=== PATIENT | female | born 1990 | race Caucasian/White ===

== ENCOUNTER → 2017-04-26 11:45 | Observation (INO) ==
[2017-04-26 10:36] LABS: Bilirubin,Urine Negative (Negative); Blood,Urine Negative (Negative); Clarity,Urine Cloudy (Clear); Color,Urine Yellow (Yellow); Glucose,Urine (UA) Normal (Normal); Ketones,Urine Negative (Negative); Leukocyte Esterase,Urine Negative (Negative); Nitrite,Urine Negative (Negative); Protein,Urine Negative (Neg-Trace); Specific Gravity,Urine 1.021 (1.010-1.025); Urobilinogen,Urine Normal (Normal)
[2017-04-26 10:37] LABS: Bacteria,Urine Moderate per hpf (None-Few); Hyaline Casts,Urine None Seen per lpf (None-Few); Squamous Epithelial Cell,Urine Many per lpf (None-Few)
[2017-04-26 10:54] VITALS: BP 124/59
[2017-04-26 10:56] LABS: Renal Epithelial Cells,Urine Few per hpf (None-Few)
[2017-04-26 11:18] LABS: Amphetamine Screen,Urine Negative ng/mL (Cutoff=1000); Barbiturate Screen,Urine Negative ng/mL (Cutoff=200); Benzodiazepines Screen,Urine Negative ng/mL (Cutoff=200); Cannabinoid Screen,Urine Negative ng/mL (Cutoff = 50); Cocaine Screen,Urine Negative ng/mL (Cutoff= 300); Opiate Screen,Urine Negative ng/mL (Cutoff=300); Phencyclidine Screen,Urine Negative ng/mL (Cutoff=25)
--- NOTE | 2017-04-26 11:36 | OB/GYN Progress Note ---
Date of Encounter: 04/26/17 Time of Encounter: 11:34 - Assessment and Plan (1) 34 weeks gestation of Current Visit: Yes Status: Acute NST reactive (2) Vaginal discharge during in third trimester Current Visit: Yes Status: Acute Vaginosis panel sent. Will call pt with results. (3) Back pain affecting in third trimester Current Visit: Yes Status: Acute Consistent with muscle pain. Comfort measures discussed. Will write work restriction for lifting. Discharge home with precautions. Subjective - Subjective Interval history: 26 year-old presenting at 34 weeks gestation with c/o white discharge with "sweet" odor and left sided back pain. She reports the pain started last night and is achy and pressure type pain. She states she has been required to lift 5 gallon pain buckets at work lately. No other complaints. No LOF or VB. Good FM. Antepartum ROS: movement normal, no loss of fluid, no vaginal bleeding, no contractions Objective - Vital Signs Vital Signs: Vital Signs Temp Pulse Resp BP 04/26/17 10:05 97.8 F 93 18 124/59 Intake and Output 04/25/17 04/26/17 04/26/17 23:59 07:59 15:59 Other: Weight 122.5 kg Patient Weight 04/26/17 23:59 Weight 122.5 kg - Exam FHR: category 1 FHR comments: NST reactive Auscultation: bilateral: normal Abdomen: Present: soft. Absent: tenderness Uterus: Present: normal. Absent: tenderness Cervical dilation: visually closed Comments: SSE with thin white discharge in vault, vaginosis panel sent. Will follow up. - Labs Labs: Abnormal lab results Urine Clarity Cloudy (Clear) A 04/26/17 10:00 Urine Microscopic WBC 3-5 per hpf (0-3) H 04/26/17 10:00 Ur Squamous Epith Cells Many per lpf (None-Few) H 04/26/17 10:00 Urine Bacteria Moderate per hpf (None-Few) H 04/26/17 10:00
[2017-04-26 12:34] LABS: Candida DNA Not Detected (Not Detect); Gardnerella DNA Not Detected (Not Detect); Trichomonas DNA Not Detected (Not Detect)
== END | disposition home or self-care (01) ==
LOC: 1NENULAB
PROVIDERS: ADMIT Student in an Organized Health Care Education/Training Program; ATTEND Student in an Organized Health Care Education/Training Program

== ENCOUNTER 2017-05-31 09:46 | Inpatient (IN) ==
[2017-05-31] MEDS ORDERED: Ondansetron 4 MG/2 ML VIAL IVP PRN (10:56)
[2017-05-31] MEDS ORDERED: *HR* Nalbuphine 20 MG/ML AMPUL IVP PRN (10:56)
[2017-05-31] MEDS ORDERED: Naloxone 0.4 MG/ML INJ IVP PRN ×2 (10:56→17:36)
[2017-05-31] MEDS ORDERED: Famotidine 20 MG/2 ML VIAL IVP PRN (10:56)
[2017-05-31] MEDS ORDERED: Ringers Solution, Lactated 1,000 ML IVC SCH (11:00)
--- NOTE | 2017-05-31 11:13 | Anesthesia Evaluation PreOp ---
Date of Encounter: 05/31/17 Time of Encounter: 11:08 - Past History Planned Operation: DESHAUN Cardiac History: Denies any Significant Hx Pulmonary History: Asthma SUSTAINABLE PRODUCTS MARKETING MANAGER History: Denies Any Significant HX Other Medical History: Denies Any Significant HX Anesthesia History: No Prior Anesthetic Complications, Past Anesthesia (wisdom teeth, D&C) : Yes Alcohol Use: none Drug use: none Medications and Allergies Albuterol Sulfate [Albuterol Inhaler] 2 puff IH Q4H PRN 08/03/16 [History] Folic Acid 0.8 mg PO DAILY 08/03/16 [History] 3 Allergy/AdvReac Type Severity Reaction Status Date / Time Cephalosporins Allergy Hives Verified 12/23/16 11:16 indomethacin Allergy Hives Verified 12/23/16 11:16 Penicillins Allergy Hives Verified 12/23/16 11:16 - Meds/Allergy Pre-op Review Medications Reviewed: Yes Allergies Reviewed: Yes Beta Blockers on Current Med List: No Anesthesia Exam T 97.8 BP 135/84 P 92 R 16 Height: 5'10" Weight: 127kg NPO (# of Hours): 1 Pain Scale: 0 Pain Scale Used: Numeric (1 - 10) - HEENT Pupil (Motor): Pupils equal Mallampati: II Teeth: Normal Oral Opening: Greater than 3 - SUSTAINABLE PRODUCTS MARKETING MANAGER LOC: Oriented SUSTAINABLE PRODUCTS MARKETING MANAGER Motor: Normal RUE, Normal LUE, Normal RLE, Normal LLE, Normal Face SUSTAINABLE PRODUCTS MARKETING MANAGER Sensory: Normal: RUE, LUE, RLE, LLE, Face - Cardiac Rhythm: Regular Murmur: None JVD: No Carotid Bruit: No - Pulmonary Breath Sounds: bilateral Clear Respiratory Effort: Symmetrical Anesthesia Assess/Plan ASA Score: 2 Modified [place] Scale for Level of Consciousness: Cooperative, oriented, and tranquil Anesthetic Plan: Regional Autologous Blood: Yes Monitoring Plan: Standard Monitors Recovery Plan: Other
[2017-05-31 11:20] LABS: Basophils % 0.2 %; Eosinophils # 0.3 K/mcL (0.0-0.6); Eosinophils % 2.4 %; Hematocrit 35.1 % (35.3-44.9); Hemoglobin 11.7 g/dL (11.5-15.4); Immature Granulocytes % 0.6 % (0-4); Lymphocytes # 1.5 K/mcL (0.6-4.6); Lymphocytes % 13.9 %; Mean Corpuscular HGB Conc 33.3 g/dL (31.6-35.5); Mean Corpuscular Hemoglobin 30.3 pg (28.0-33.3); Mean Corpuscular Volume 90.9 fL (83.0-100.0); Mean Platelet Volume 10.8 fL (9.4-12.4); Monocytes # 0.7 K/mcL (0.0-1.3); Monocytes % 6.3 %; Neutrophils # 8.4 K/mcL (1.6-8.9); Platelet Count 219 K/mcL (140-400); Red Blood Count 3.86 M/mcL (3.82-4.97); Red Cell Distribution Width 13.9 % (11.5-14.5); Segmented Neutrophils % 76.6 %
[2017-05-31] MEDS ORDERED: miSOPROStol 25 MCG TABLET PO PRN ×2 (12:07→12:08)
[2017-05-31] MEDS: Vancomycin 1,000 MG in D5% in Water 250 ML IVPB SCH ×2 (12:19→23:59)
--- NOTE | 2017-05-31 12:25 | OB/GYN History & Physical ---
Date of Encounter: 05/31/17 Time of Encounter: 12:23 Assessment and Plan (1) 39 weeks gestation of Current visit: Yes Status: Acute (2) Elective induction of labor planned Current visit: Yes Status: Acute Admit to labor and delivery Cytotec 50 g by mouth Vancomycin for GBS prophylaxis Nubain and epidural as desired Anticipate History of Present Illness Chief complaint: Induction of labor HPI: Ms. Fairbanks is a 26 year old [id number] 39+0 weeks presents to labor and delivery for an elective induction of labor. Uncomplicated course. Reports good movement, denies vaginal bleeding or leaking of fluid or contractions. Labs: O+, rubella immune, GBS positive, all other serologies negative Past Med Surg Social Fam HX - Past Medical History Medical history: asthma Psychiatric history: anxiety - Past Surgical History Surgical History: other (wisdom teeth, D&C) - Social History Smoking Status: Former smoker Smokeless Tobacco Status: No Alcohol use: none Drug use: none - Family History Mother Adopted: No Living Status: Still Living Hx Family Cardiac Disorders: Yes (HYPERTENSION) Hx Family Respiratory Disorders: No Hx Family Cancer: No Hx Family GI Disorders: No Hx Family Endocrine Disorder: No Hx Family Neuromuscular Disorders: No Hx Family Neurologic Disorders: No Hx Family HEENT Disorders: No Hx Family Autoimmune Disorders: No Obstetrical History - Pregnancies : 4 Para: 1 Term: 1 : 0 Ab's: 2 Livin Medications and Allergies Albuterol Sulfate [Albuterol Inhaler] 2 puff IH Q4H PRN 08/03/16 [History] Folic Acid 0.8 mg PO DAILY 08/03/16 [History] 3 Allergy/AdvReac Type Severity Reaction Status Date / Time Cephalosporins Allergy Hives Verified 12/23/16 11:16 indomethacin Allergy Hives Verified 12/23/16 11:16 Penicillins Allergy Hives Verified 12/23/16 11:16 Exam - Constitutional Constitutional: well developed, well nourished, no acute distress, obese - Neck Neck exam: full ROM - Lungs Respiratory exam: CTAB - Cardiovascular Cardiovascular exam: RRR - Abdomen Abdomen: Present: bowel sounds normal, gravid, non tender - Extremities Deep Tendon Reflex Grade: 2+ Normal - Vagina Vagina: Present: normal moisture - Cervix Dilation: 3 Effacement: 80 Station: -2 - Uterus Uterus exam: Present: normal size, normal contour Results Result Diagrams: 05/31/17 10:27 Abnormal lab results Hct 35.1 % (35.3-44.9) L 05/31/17 10:27 All other labs normal. - VTE Reasons for not Prescribing Prophylaxis: Treatment not Indicated - Low risk for VTE
[2017-05-31] MEDS ORDERED: Aminoglycoside Consult 1 EACH MC ONE (12:29)
[2017-05-31 12:53] LABS: BUN/Creatinine Ratio 11 (6-26); Blood Urea Nitrogen 7 mg/dL (7-20); eGFR For African Americans > 60 (> 60); eGFR For Non-African Americans > 60 (> 60)
[2017-05-31] MEDS ORDERED: EPHEDrine 50 MG/ML VIAL IVP PRN (17:36)
[2017-05-31] MEDS ORDERED: Bupivacaine-MPF 0.25% 10 ML VIAL EP ONE (17:36)
[2017-05-31] MEDS ORDERED: *HR* FentaNYL (PF) 100 MCG/2 ML VIAL EP ONE (17:36)
[2017-05-31] MEDS ORDERED: Epidural Premix (fent/bupiv) 110 ML EP ONE (17:41)
[2017-05-31] MEDS ORDERED: Epidural Premix (fent/bupiv) 110 ML EP SCH (17:45)
[2017-05-31] MEDS ORDERED: Vancomycin 1,000 MG in D5% in Water 250 ML IVPB SCH (18:00)
--- NOTE | 2017-05-31 18:30 | Anesthesia Procedures ---
Date of Encounter: 05/31/17 Time of Encounter: 17:45 Procedures: Anesthesia - Epidural/Spinal Patient ID/Chart reviewed: Yes Patient examined: Yes OB Eval: Gestational age: 39 OB Eval: : 4 OB Eval: Hx Para: 1 OB Eval: Dilated at (cm): 4 OB Eval: Contractions: Non-stressed pattern Consent Obtained: Yes Supplemental Oxygen: None/Room Air Site Prep: Aseptic Technique, Sterile prep and drape, Povidone-Iodine 1% Patient position: upright Local Anesthetic: Lidocaine 1% Amount of Local Anesthetic used: 3 Touhy Needle Gauge: 18 Catheter Depth at Skin (cm): 7 Test Dose (1.5% Lido + Epi): Volume given (mls): 3 Test Dose Result: Negative Loading Dose: 0.25% Marcaine (mls): 10 Loading Dose: Fentanyl (mcg): 100 Loading Dose Administered: Thru Catheter Infusion Med: 0.125% Bupivacaine w/ 2 mcg/ml Fentanyl Infusion Rate (mls/hr): [address]: Tape Interspace Used: L4-L5 Loss of Resistance (ABILIO): Yes Blood: No Paresthesia: No Procedure: DESHAUN placed 1st pass in upright position without any immediate noted complications. VSS and FHT stable throughout. Vitals + FHT's: 1745 BP 150/89 P 85 R 16 1818 BP 137/84 P 94 R 16
[2017-05-31] MEDS ORDERED: Oxytocin 20 units/ LR 1000 mL 20 UNIT/1,000 ML BAG IVC SCH (18:45)
--- NOTE | 2017-05-31 19:12 | OB Labor Progress Note ---
Date of Encounter: 05/31/17 Time of Encounter: 19:10 Labor Progress Note - Subjective Subjective: Pt comfortable with epidural - Cervix Cervix: 5/75/-2 - Heart Tones Heart Tones: 125/moderate/+accels/-decels - [place]: 2-4 - Interventions Interventions: AROM clear fluid - Plan Plan: Start pitocin and increase per policy. Anticipate
--- NOTE | 2017-05-31 22:53 | OB Labor Progress Note ---
Date of Encounter: 05/31/17 Time of Encounter: 22:51 Labor Progress Note - Subjective Subjective: Pt comfortable with epidural - Cervix Cervix: 5/90/-2 - Heart Tones Heart Tones: 125/moderate/+accels/-decels - [place]: IUPC placed - Interventions Interventions: IUPC placed without difficulty - Plan Plan: Continue to increase pitocin per policy Use peanut ball Anticipate
[2017-06-01] MEDS ORDERED: Epidural Premix (fent/bupiv) 110 ML EP ONE (00:26)
--- NOTE | 2017-06-01 04:25 | OB/GYN Procedure Note ---
Delivery - Delivery Date: 06/01/17 Provider: Darline Jose Intrapartum events: none Delivery induction: misoprostol Delivery augmentation: rupture of membranes, pitocin Delivery monitor: external FHT, external uterine, internal uterine Anesthesia: epidural Estimated Blood Loss: 100 - Infant (s) Infant A Infant Delivery Date: 06/01/17 Infant Delivery Time: 03:39 Presentation: vertex Position: OA Route of delivery: Gender: Female Viability: Viable Pounds: 9 Ounces: 11 Weight Gram: 4.4 kg at 1 minute: 8 at 5 mins: 9 Shoulder Dystocia: encountered Shoulder Dystocia Maneuvers: Lorenzo maneuver, suprapubic pressure, Snyder Screw maneuver Shoulder dystocia time elapsed: 58sec Specimens collected: cord blood Placenta: spontaneous Cord: 3 umbilical vessels - Repair Episiotomy: none Laceration Description: Perineal - 1st Degree, Labial - Complications Delivery complications: none Delivery comments: Induction of labor with cytotec and pitocin. Progressed to complete, directed maternal bearing down efforts, to of liveborn girl. Vertex delivered OA, shoulder dystocia encountered, Dr. Melendez called. restitution to GRETCHEN, Lorenzo, suprapubic pressure and wood screw maneuver through OA to SUBHA with delivery of anterior shoulder, body easily followed. Infant placed on maternal abdomen for stimulation, cord clamped and cut by CNM, taken to warmer APGARS 8/9. Placenta delivered spontaneously and intact on inspection. Fundus massaged to firm. Pitocin started per policy. First degree perineal lacerations and labial lacerations. Left labia repaired with 4-0. Wolf RAYMOND assisted with delivery of head, Dr. Melendez arrived as was taken to warmer. EBL 100 - Disposition Mom disposition: stable in LDR disposition: stable in LDR
[2017-06-01] MEDS ORDERED: *HR* HYDROcodone/Acet 5/325 mg TABLET PO PRN (06:55)
[2017-06-01] MEDS ORDERED: Acetaminophen 325 MG TABLET PO PRN (06:55)
[2017-06-01] MEDS ORDERED: Lanolin 28 GM TUBE TP PRN (06:55)
[2017-06-01] MEDS ORDERED: Oxytocin 20 units/ LR 1000 mL 20 UNIT/1,000 ML BAG IVC SCH (06:55)
[2017-06-01] MEDS ORDERED: Benzocaine/Menthol 56 GM AEROSOL SPRAY TP PRN (06:55)
[2017-06-01] MEDS ORDERED: Prenatal Vit/FA 1 EACH TABLET PO SCH (09:00)
[2017-06-01] MEDS: Ibuprofen 600 MG TABLET PO PRN ×2 (14:30→20:45)
--- NOTE | 2017-06-02 08:00 | Discharge Summary ---
Date of Encounter: 06/02/17 Time of Encounter: 07:45 - Discharge Diagnosis (1) Vaginal delivery Priority: Primary Status: Resolved (2) 39 weeks gestation of Priority: Primary Status: Resolved - Discharge Medications Prescriptions: Ibuprofen [Motrin] 600 mg PO Q6HR PRN #60 tablet PRN Reason: Cramping Docusate [Colace] 100 mg PO BID #30 capsule Home Medications: Albuterol Sulfate [Albuterol Inhaler] 2 puff IH Q4H PRN 08/03/16 [History] Folic Acid 0.8 mg PO DAILY 08/03/16 [History] Docusate [Colace] 100 mg PO BID #30 capsule 06/02/17 [Rx] Ibuprofen [Motrin] 600 mg PO Q6HR PRN #60 tablet 06/02/17 [Rx] Allergies/Adverse Reactions: 3 Allergy/AdvReac Type Severity Reaction Status Date / Time Cephalosporins Allergy Hives Verified 12/23/16 11:16 indomethacin Allergy Hives Verified 12/23/16 11:16 Penicillins Allergy Hives Verified 12/23/16 11:16 Data Procedures and tests throughout hospitalization: Laboratory Tests 05/31/17 05/31/17 10:23 10:27 WBC 10.9 RBC 3.86 Hgb 11.7 Hct 35.1 L MCV 90.9 MCH 30.3 MCHC 33.3 RDW 13.9 Plt Count 219 MPV 10.8 Immature Gran % 0.6 Seg Neutrophils % 76.6 Lymphocytes % 13.9 Monocytes % 6.3 Eosinophils % 2.4 Basophils % 0.2 Neutrophils # 8.4 Lymphocytes # 1.5 Monocytes # 0.7 Eosinophils # 0.3 Basophils # 0.0 BUN 7 Creatinine 0.62 Est GFR ( Amer) > 60 Est GFR (Non-Af Amer) > 60 BUN/Creatinine Ratio 11 Date of admission: 05/31/17 09:46 Primary care physician: Anita Limon CNP Consults: 06/01/17 06:55 Consult to Optical Goods Worker [CONS] Routine Comment: Vaginal delivery, consult needed Discharging clinician: Bonilla Morales Anticipated date of discharge: 06/02/17 - Patient Status Disposition: Home, Self-Care Condition: Good Functional capacity at discharge: independent ambulation Overall status at discharge: patient is progressing back to baseline - Discharge Instructions Follow Up With: Anita Limon CNP [Primary Care Provider] - - Diet and Activity Activity: resume usual activities as tolerated Diet: regular diet Hospital Course Reason for admission: induction of labor Delivery: Episiotomy: none Laceration: 1st degree Other procedures: none complications: perineal laceration Discharge diagnosis: IUP at term delivered [place] baby: female Hospital course: Ms. Fairbanks is a 26 year old female that presented 39+0 weeks presented to labor and delivery for an elective induction of labor. Uncomplicated course. Reported good movement, denied vaginal bleeding or leaking of fluid or contractions. She was started on cytotec, given vancomycin for GBS prophylaxis, and epidural. Induction of labor with cytotec and pitocin. Progressed to complete, directed maternal bearing down efforts, to of liveborn girl. Vertex delivered OA, shoulder dystocia encountered, Dr. Melendez called. restitution to GRETCHEN, Lorenzo, suprapubic pressure and wood screw maneuver through OA to SUBHA with delivery of anterior shoulder, body easily followed. Infant placed on maternal abdomen for stimulation, cord clamped and cut by CNM, infant taken to warmer APGARS 8/9. Placenta delivered spontaneously and intact on inspection. Fundus massaged to firm. Pitocin started per policy. First degree perineal lacerations and labial lacerations. Left labia repaired with 4-0. Wolf RAYMOND assisted with delivery of head, Dr. Melendez arrived as infant was taken to warmer. EBL 100. When seen today, patient says that she is in good mood and the baby is doing well. She is currently bottle feeding as a preference choice. She says her vaginal bleeding is light and has been improving. Her pain is well-controlled and is a 2/10 in the pain scale. She has been voiding and able to ambulate well. She denies fever, chills, nausea, vomiting, chest pain, shortness of breath, headaches or vision changes. She has a follow-up appointment with Dr. Marsh on 06/29/17. Time Attestation: Total time spent providing and/or coordinating discharge services: Time Spent: Less than 30 minutes Exam - Constitutional Vitals: Temp Pulse Resp BP Pulse Ox 97.8 F 97 14 134/75 96 06/01/17 19:47 06/01/17 19:47 06/01/17 19:47 06/01/17 19:47 06/01/17 19:47 General appearance IM: A&O X 3, pleasant, no acute distress, answers questions appropriately - Respiratory Respiratory exam: Present: CTAB - Cardiovascular Cardiovascular exam IM: Present: RRR, +S1, +S2 - GI/Abdominal GI/Abdominal exam IM: normal bowel sounds, soft, tenderness (Minor tenderness in lower quadrants with deep palpation.) - Uterine Tone: Firm - Extremities Exam Extremities exam IM: Present: full ROM, normal capillary refill, normal inspection, radial pulses palpable and symmetrical. Absent: calf tenderness, cyanotic, pedal edema Additional comments: Pedal pulses intact and symmetrical bilaterally. - Neurological Exam Neurological exam: reflexes normal, no focal deficits
[2017-06-02] MEDS: Ibuprofen 600 MG TABLET PO PRN (08:35)
[2017-06-02 08:38] VITALS: BP 141/84
== END 2017-06-02 12:30 | disposition home or self-care (01) | DRG 775 ==
LOC: 1NENULAB 09:46 → 1NENUOBS 06-01 06:50
PROVIDERS: ADMIT Obstetrics & Gynecology; ATTEND Obstetrics & Gynecology